=== PATIENT | male | born 1975 | race Hispanic/Latino ===

== ENCOUNTER 2022-10-25 08:56 | Outpatient (CLI) | payer SELFPAY | END 2022-10-25 08:57 | disposition home or self-care (01) | LOC: CSHWCC 08:56 | PROVIDERS: ATTEND Nurse Practitioner Family | DX: T81.89XD Other complications of procedures, not elsewhere classified, subsequent encounter (principal); R60.0 Localized edema | CPT/HCPCS: 97605; 99203; G0463 ==

== ENCOUNTER 2022-10-29 09:05 | Outpatient (CLI) | payer SELFPAY | END 2022-10-29 09:06 | disposition home or self-care (01) | LOC: CSHWCC 09:05 | PROVIDERS: ATTEND Nurse Practitioner Family | DX: T81.89XD Other complications of procedures, not elsewhere classified, subsequent encounter (principal); Z89.411 Acquired absence of right great toe; R60.0 Localized edema | CPT/HCPCS: 97605 ==

== ENCOUNTER 2022-11-01 11:30 | Outpatient (CLI) | payer SELFPAY | END 2022-11-01 11:31 | disposition home or self-care (01) | LOC: CSHWCC 11:30 | PROVIDERS: ATTEND Nurse Practitioner Family | DX: T81.89XD Other complications of procedures, not elsewhere classified, subsequent encounter (principal); R60.0 Localized edema ==

== ENCOUNTER 2022-11-05 12:52 | Outpatient (CLI) | payer SELFPAY | END 2022-11-05 12:53 | disposition home or self-care (01) | LOC: CSHWCC 12:52 | PROVIDERS: ATTEND Nurse Practitioner Family | DX: T81.89XD Other complications of procedures, not elsewhere classified, subsequent encounter (principal); Z89.411 Acquired absence of right great toe; R60.0 Localized edema | CPT/HCPCS: 97605 ==

== ENCOUNTER 2022-11-08 10:02 | Outpatient (CLI) | payer SELFPAY | END 2022-11-08 10:03 | disposition home or self-care (01) | LOC: CSHWCC 10:02 | PROVIDERS: ATTEND Nurse Practitioner Family | DX: T81.89XD Other complications of procedures, not elsewhere classified, subsequent encounter (principal); R60.0 Localized edema | CPT/HCPCS: 97605 ==

== ENCOUNTER 2022-11-12 14:05 | Outpatient (CLI) | payer SELFPAY | END 2022-11-12 14:06 | disposition home or self-care (01) | LOC: CSHWCC 14:05 | PROVIDERS: ATTEND Nurse Practitioner Family | DX: T81.89XD Other complications of procedures, not elsewhere classified, subsequent encounter (principal); R60.0 Localized edema | CPT/HCPCS: 11042; 97605 ==

== ENCOUNTER 2022-11-15 14:30 | Outpatient (CLI) | payer SELFPAY | END 2022-11-15 14:31 | disposition home or self-care (01) | LOC: CSHWCC 14:30 | PROVIDERS: ATTEND Nurse Practitioner Family | DX: T81.89XD Other complications of procedures, not elsewhere classified, subsequent encounter (principal) ==

== ENCOUNTER 2022-11-19 13:35 | Outpatient (CLI) | payer SELFPAY | END 2022-11-19 13:36 | disposition home or self-care (01) | LOC: CSHWCC 13:35 | PROVIDERS: ATTEND Nurse Practitioner Family | DX: T81.89XD Other complications of procedures, not elsewhere classified, subsequent encounter (principal); R60.0 Localized edema | CPT/HCPCS: 97605 ==

== ENCOUNTER 2022-11-22 08:17 | Outpatient (CLI) | payer SELFPAY | END 2022-11-22 08:18 | disposition home or self-care (01) | LOC: CSHWCC 08:17 | PROVIDERS: ATTEND Nurse Practitioner Family | DX: T81.89XD Other complications of procedures, not elsewhere classified, subsequent encounter (principal); S81.801D Unspecified open wound, right lower leg, subsequent encounter; R60.0 Localized edema; Z89.411 Acquired absence of right great toe | CPT/HCPCS: 97605 ==

== ENCOUNTER 2022-12-07 13:34 | Outpatient (CLI) | payer SELFPAY | END 2022-12-07 13:35 | disposition home or self-care (01) | LOC: CSHWCC 13:34 | PROVIDERS: ATTEND Nurse Practitioner Family | DX: T81.89XD Other complications of procedures, not elsewhere classified, subsequent encounter (principal); S81.801D Unspecified open wound, right lower leg, subsequent encounter; R60.0 Localized edema; Z89.411 Acquired absence of right great toe | CPT/HCPCS: 29581; 97605 ==

== ENCOUNTER 2022-12-10 13:02 | Outpatient (CLI) | payer SELFPAY | END 2022-12-10 13:03 | disposition home or self-care (01) | LOC: CSHWCC 13:02 | PROVIDERS: ATTEND Nurse Practitioner Family | DX: T81.89XD Other complications of procedures, not elsewhere classified, subsequent encounter (principal); R60.0 Localized edema; S81.801D Unspecified open wound, right lower leg, subsequent encounter | CPT/HCPCS: 29581; 97605 ==

== ENCOUNTER 2022-12-12 13:03 | Outpatient (CLI) | payer SELFPAY | END 2022-12-12 13:04 | disposition home or self-care (01) | LOC: CSHWCC 13:03 | PROVIDERS: ATTEND Nurse Practitioner Family | DX: T81.89XD Other complications of procedures, not elsewhere classified, subsequent encounter (principal); S81.801D Unspecified open wound, right lower leg, subsequent encounter; R60.0 Localized edema; Z89.411 Acquired absence of right great toe | CPT/HCPCS: 29581; 97605 ==

== ENCOUNTER 2022-12-17 13:26 | Outpatient (CLI) | payer SELFPAY | END 2022-12-17 13:27 | disposition home or self-care (01) | LOC: CSHWCC 13:26 | PROVIDERS: ATTEND Nurse Practitioner Family | DX: T81.89XD Other complications of procedures, not elsewhere classified, subsequent encounter (principal); Z89.411 Acquired absence of right great toe ==

== ENCOUNTER 2022-12-31 09:08 | Outpatient (CLI) | payer SELFPAY | END 2022-12-31 09:09 | disposition home or self-care (01) | LOC: CSHWCC 09:08 | PROVIDERS: ATTEND Nurse Practitioner Family | DX: T81.89XD Other complications of procedures, not elsewhere classified, subsequent encounter (principal) ==

== ENCOUNTER 2023-01-14 08:35 | Outpatient (CLI) | payer OTHER, SELFPAY | END 2023-01-14 08:36 | disposition home or self-care (01) | LOC: CSHWCC 08:35 | PROVIDERS: ATTEND Nurse Practitioner Family | DX: E11.8 Type 2 diabetes mellitus with unspecified complications (principal) | CPT/HCPCS: 99213; G0463 ==